=== PATIENT | female | born 1960 | race Caucasian/White ===

== ENCOUNTER 2018-12-07 10:44 | Outpatient (CLI) | payer MEDICARE | END 2018-12-07 11:50 | disposition home or self-care (01) | LOC: D.OPS 10:44 | DX: K21.9 Gastro-esophageal reflux disease without esophagitis (principal); Z01.812 Encounter for preprocedural laboratory examination ==

== ENCOUNTER 2019-01-24 08:43 | Day surgery (SDC) | payer MEDICARE ==
[~2019-01-24] VITALS: Ht 157.5 cm; Wt 72.3 kg
[~2019-01-24 08:43] MED LIST: AMBIEN10 MG PO; CARAFATE1 G PO
[2019-01-24 08:59] LABS: HEMATOCRIT 47.1 % (36.0-48.0); MCH 32.1 pg (26.0-34.0); MCV 94.4 fL (80.0-100.0); MEAN PLATELET VOLUME 9.8 fL (7.4-10.4); RBC 4.99 10x6/uL (4.00-5.40); RDW 12.9 % (11.5-14.5); WBC 11.1 10x3/uL (4.8-10.8)
[2019-01-24] MEDS ORDERED: ZOLOFT100 MG PO (10:10)
[2019-01-24] MEDS ORDERED: OXYBUTYNIN CHLOR5 MG (10:11)
[2019-01-24] MEDS ORDERED: CLARITIN 10 MG10 MG PO (10:11)
[2019-01-24] MEDS ORDERED: EPITOL200 MG PO (10:12)
[2019-01-24] MEDS ORDERED: OMEPRAZOLE40 MG PO (10:13)
[2019-01-24] MEDS ORDERED: RANITIDINE HCL150 M1 PO (10:14)
[2019-01-24] MEDS ORDERED: BUPROPION HCL150 M1 PO (10:14)
[2019-01-24] MEDS ORDERED: ESTRACE1 MG (10:15)
[2019-01-24] MEDS ORDERED: MOBIC7.5 MG PO (10:17)
[2019-01-24] MEDS ORDERED: BACLOFEN10 MG PO (10:18)
[2019-01-24] MEDS ORDERED: VENTOLIN (10:19)
[2019-01-24 10:49] VITALS: BP 108/72; BMI 29.1
[2019-01-24 14:28] VITALS: BP 147/73
--- NOTE | 2019-01-24 14:48 | NUR ---
RECEIVED PT FROM RECOVERY, PT IS ASLEEP AND EASY TO WAKE UP, NO NEEDS VOICED, PT BED I NLOW POSITION, CL IN REACH, ABDOMEN HAS 5 LAP SITES, CLEAN AND DRY, CONTINUE WITH PLAN OF CARE
[2019-01-24 15:12] VITALS: Ht 157.5 cm; Wt 72.3 kg
--- NOTE | 2019-01-24 15:40 | NUR ---
PT IS IN BED CURSING STATTING OP HAS HER BELONGINGS AND THEY LOST IT AND THAT SHE WILL GET OUT OF THIS BEDHERSLF TO GO FIND IT, TOLD PT TO CALM DOWN AND WE WILL FIND HER BELONGINGS, PT STATED NO ONE CAME WITH HER AND CONTINUED TO CURSE ME THEN CALLED [facility] AND CURSED THEIR NURSES OUT. STATED SHE HAS A BLUE VERA EMIR PURSE, A BROWN BAG WITH HER CLOTHES IN IT AND A WHITE PERSONAL BELONGINGS BAG THAT HAD THE CLOTHES SHE WORE TODAY AAS WELL HER SHOES WITH HER. ADVISED PT TO QUIT CURSING AND WE WILL FIND HER THINGS
--- NOTE | 2019-01-24 17:11 | NUR ---
ASSISTED PT UP TO RESTROOM, PT AMBULATED WELL WITH ASSISTANCE, ASSISTED PT BACK TO BED, NO OTHER NEEDS VOICED, CONTINUE WITH PLAN OF CARE, OUTPT NURSE CAME AND BROUGHT PT BELONGINGS AFTER PT CALLED AND GOT IRRATE WITH THEM
[2019-01-24 20:00] VITALS: BP 111/57
--- NOTE | 2019-01-24 20:00 | NUR ---
ALERT AND ORIENTIATED RESTING IN BED, ABD INCISIONS INTACT, [employer] INCISION NOTED TO HAVE SMALL AMOUNT OLD BLOODY DRAINAGE, C/O ITCHING UNDER BREAST STATES HAS HAD YEAST BEFORE THAT IS WHAT IT FEEL LIKE, THIN RED LINE NOTED UNDER BREAST NO OTHER RASH NOTED
[2019-01-25 04:00] VITALS: BP 106/65
[2019-01-25 06:05] LABS: BASOPHILS 0.1 % (0-2); EOSINOPHILS 0.8 % (0-7); IMMATURE GRANULOCYTES 0.3 % (0-5); LYMPHOCYTES 28.1 % (15-50); MCH 31.3 pg (26.0-34.0); MCHC 32.9 g/dL (31.0-37.0); MEAN PLATELET VOLUME 9.8 fL (7.4-10.4); NEUTROPHILS 62.7 % (40-80); RDW 12.8 % (11.5-14.5); WBC 8.6 10x3/uL (4.8-10.8)
[2019-01-25 06:13] LABS: HEMOGLOBIN 12.5 g/dL (12-16); PLATELET COUNT 224 10x3/uL (130-400)
[2019-01-25 06:33] LABS: ALBUMIN 2.6 g/dL (3.4-5.0); ALKALINE PHOSPHATASE 60 U/L (46-116); ALT (SGPT) 29 U/L (10-68); BILIRUBIN - TOTAL 0.44 mg/dL (0.2-1.3); CALC OSMOLALITY 283 mosm/kg (275-300); CALCIUM 7.7 mg/dL (8.5-10.1); CHLORIDE - SERUM 108 mmol/L (98-107); CREATININE - SERUM 0.7 mg/dL (0.6-1.3); GLUCOSE 96 mg/dL (74-106); POTASSIUM - SERUM 3.9 mmol/L (3.5-5.1); PROTEIN - SERUM 5.5 g/dL (6.4-8.2); SODIUM 143 mmol/L (136-145); UREA NITROGEN 10 mg/dL (7-18); eGFR NON AFRICAN AMERICAN > 90 mL/min (90-120)
--- NOTE | 2019-01-25 07:31 | NUR ---
PT SITTING UP IN BED STATED STILL MENDOZA SABD PAIN, PT WAS ONLY GIVEN TORADOL LAST NIGHT ADVISED PT SHE DOES HAVE ANOTHER PAIN MEDICATION ON BOARD I CAN ADMINISTER, WILL ADMINISTER PRN PAIN MEDS WITH SCHEDULED MAR THIS MORNING, NO OTHER NEEDS VOICED, PT LAP SITES CDI, CONTINUE WITH PLAN OF CARE
[2019-01-25] MEDS ORDERED: ZOFRAN ODT4 MG/UDTAB PO (08:30)
[2019-01-25] MEDS ORDERED: HYDROCODON-ACE1 EAC7 PO (08:30)
--- NOTE | 2019-01-25 08:47 | NUR ---
PT WALKED AROUND NURSING STATION 1X, TOLERATED WELL, PT STATED SHE WAS WORRIED DUE TO HOME HAS STAIRS, ADVISED PT TO TAKE IT SLOWLY, ONE STEP AT A TIME AND TO USE RAILS FOR ASSISTANCE, PER DR GALEAS, ORDERED PT NYSTATIN CREAM FOR AREAS UNDDRE BREAST AND ARMS THAT WERE RED AND ITCHING. CONTINUE WITH PLAN OF CARE
[2019-01-25 09:06] VITALS: BP 92/49
== END 2019-01-25 10:51 | disposition home or self-care (01) ==
LOC: D.OPS 08:43 → D.PAN 10:30 → D.OPS 10:30 → D.MS 14:26 → D.OPS 01-25 10:51
PROVIDERS: Anesthesiology; ATTEND Surgery
DX: K44.9 Diaphragmatic hernia without obstruction or gangrene (principal); K21.9 Gastro-esophageal reflux disease without esophagitis; K31.84 Gastroparesis; F17.200 Nicotine dependence, unspecified, uncomplicated; Z01.812 Encounter for preprocedural laboratory examination